=== PATIENT | female | born 1950 | race Caucasian/White ===

== ENCOUNTER 2022-04-06 06:38 | Day surgery (SDC) | payer MEDICARE, OTHER, SELFPAY ==
[2022-04-06] VITALS (8 sets, daily range): BP systolic 146–187; BP diastolic 63–90; PULSE 75–84; RESP 11–19; TEMP 36.7–37.2; O2SAT 93–98
--- NOTE | 2022-04-06 | PATH_ITS ---
[facility] Accession Number: [id number] . 01 Material submitted: . body - RIGHT PAROTID MASS . 01 Diagnosis: Right Parotid Gland, Resection: Warthin tumor. Negative for significant atypia and malignancy. [facility] 04/10/2022 1706 Local . 01 Comment: The neoplasm extends to the inked surgical margin, but does not appear transected. . 01 Electronically signed: . Kia Brito MD, Pathologist NPI- [id number] . 01 Gross description: . Received in formalin and labeled with the patient's name, designated parotid mass, is a 6-gram, 4.2 x 2.2 x 1.2 cm portion of salivary gland. The outer surface is inked. Sectioning reveals a uniform yellow-mcdaniel, slightly granular/nodular and focally chalky cut surface, extending to the inked margin. No residual, uninvolved salivary gland tissue is identified. Professor Of Biochemistry sections are submitted in A1-A2. (WILMA:[id number]) /MRV 04/07/2022 1522 Local . 01 Pathologist provided ICD-10: D11.9 . 01 CPT . 482186 Specimen Comment: A courtesy copy of this report has been sent to [phone] Performed at: 01 [facility] [address] [place] [address] Suite [facility], [place], [place] [id number] MD Matt Vargas MD Phone: [phone]
[2022-04-06] MEDS: LACTATED RINGERS 1,000 ML 42 ML IV ×3 (07:20→08:55)
--- NOTE | 2022-04-06 07:25 | PM.PREOP ---
Pre-operative Note Interval Note History & Physical reviewed/Exam performed by Physician: Yes Changes to H&P: No
--- NOTE | 2022-04-06 07:26 | PM.HP.1 ---
History of Present Illness History of Present Illness Date Patient Seen: 04/06/22 Time Patient Seen: 07:26 Chief complaint: Right parotid mass Narrative: 71-year-old female with a right parotid mass, benign on FNA, presents for excision. She was last seen in clinic 01/30/2022, no interval health changes. Received anesthesia clearance 02/09/2022. Patient History Medical History Arthritis Current smoker Diabetes Environmental allergies HTN (hypertension) Surgical History History of cataract extraction (2018) Hx of oral surgery (2014) Family & Social History Tobacco & Substance use: Smoking Status Former smoker alcohol intake current alcohol intake frequency other Substance Use Type marijuana Meds Home Medications and Allergies Home Medications Medication Instructions Recorded Confirmed Type amlodipine 5 mg tablet 5 mg PO DAILY 04/03/22 04/06/22 History losartan 50 mg tablet 50 mg PO DAILY 04/03/22 History pravastatin 40 mg tablet 40 mg PO DAILY 04/03/22 04/06/22 History Allergies Allergy/AdvReac Type Severity Reaction Status Date / Time Penicillins Allergy Rash Verified 04/06/22 07:16 Review of Systems Review of Systems Narrative: Negative except as listed in the HPI Exam Vital Signs (past 8 hours): - 04/06/22 07:04 Temperature 98.5 F Pulse Rate 75 Respiratory Rate 16 Blood Pressure 161/84 H Pulse Oximetry 98 Oxygen Delivery Method Room Air Narrative Exam Narrative: Well-developed well-nourished female with a 2-3 cm right parotid tail/level 2 mass. Heart regular rate and rhythm, lungs clear to auscultation bilaterally Assessment & Plan Assessment & Plan narrative: Assessment: Right parotid/level 2 neck mass Plan: Following discussion of the material risks benefits complications and alternatives, she elected to proceed with excision as an outpatient. Time Spent With Patient Critical Care time: I spent a total of [] minutes of critical care time on this patient's care today; this time is exclusive of procedural time.
--- NOTE | 2022-04-06 07:28 | PM.OP.1 ---
Operative Date/Time/Diagnoses Date of procedure: 04/06/22 Time of procedure: 09:01 Pre-op diagnosis: Right parotid tail/level 2 mass Post-op diagnosis: same Procedure & Clinicians Procedure: RIGHT partial parotidectomy WITHOUT nerve dissection. Facial nerve monitoring. Same procedure as scheduled: Yes Indications: 71-year-old female with a right parotid tail/level 2 neck mass, presents for excision. Following discussion of the material risks benefits complications and alternatives, she elected to proceed. Surgeon: Guille Meeks [employer] Operator: Zan Del Rio Anesthesia Type: General Operative Notes Findings: 3cm mass RIGHT parotid tail, facial nerve dissection not required due to mass location, a single vascular branch to the posterior facial vein required ligation, with a single cutaneous nerve visible during the dissection left intact, with a small branch of the greater auricular nerve requiring lysis. Closure Type: primary Specimen(s): other (Right parotid/level 2 neck mass) Estimated Blood Loss (mL): 5 Procedure in detail: Following identification and confirmation of consent as well as the site of the lesion marked in ink, the patient was brought to the operating suite and placed in the supine position. General LMA was performed with the table turned right side out and head turned to the left. Facial nerve EMG electrodes were placed by the set up mold technician and monitored throughout the case although no stimulation was utilized and there was no stimulation noted during any portion of the dissection. Dr. Del Rio surgical instrument repair specialist was required due to the possible complex nature of the mass in relation to the facial nerve. A modified Lg incision was marked in ink on the right side and widely infiltrated with 1% lidocaine 1 100,000 epinephrine. Following sterile prep and drape, I incised the skin utilizing only the inferior portion of the incision, beginning at the inferior lobule and curving into the neck in the submandibular area. I elevated the skin and subcutaneous flap over the mass and the mass was readily visible. Sharp and blunt dissection was utilized using bipolar cautery to dissect the mass circumferentially with a single vascular pedicle to a small branch of the posterior facial vein. No branches of the facial nerve were visible although a cervical sensory branch was identified and spared. Minimal hemostasis was required with bipolar cautery. The wound was irrigated with Betadine and the skin and subcutaneous tissue was closed with interrupted 4-0 chromic followed by running 5 0 nylon to the skin. Antibiotic ointment was applied. She was awakened in the operating room and taken to recovery room in stable condition without known complication. Sponge and needle counts were correct. Complications: none Post-operative Condition: stable Disposition: same day surgery Plan for aftercare: Antibiotic ointment or Vaseline to the incision at all times, ice as tolerated 24-48 hours, extended pressure as necessary for any bleeding. Follow-up in 1 week for suture removal. Tylenol and Advil for pain control, possible oxycodone.
--- NOTE | 2022-04-06 08:17 | SUR.OPER ---
Supine on padded OR bed, head on gel donut, left arm secured on padded arm boards at <90 degrees abduction, right arm tucked with gel, tape across arms to secure Right arm tucked, legs uncrossed, safety belt at thigh, tape over blanket over lower legs. Directed and approved by surgeon
[2022-04-06] MEDS: LIDOCAINE 1% W/EPI 20 ML INJ (08:33)
[2022-04-06] MEDS: ONDANSETRON 4 MG/2 ML INJ IV (09:23)
[2022-04-06] MEDS: OXYCODONE/ACETAMINOPHEN 5/325 TABLET 1 TAB PO (09:37)
--- NOTE | 2022-04-06 12:20 | SUR.PHASEII ---
1015 Dr Meeks notified of patient dressing with oozing. Pressure held with ice and pressure bag for 15 minutes. 1040 Pt dressing changed to right neck. No signs of bleeding, slight ooze at incision under ear. Pressure dressing with 4x4 folded and tegaderm placed. Pt will continue to hold pressure and ice during discharge home. Steady on feet. Pain 1/10.
== END 2022-04-06 10:50 | disposition home or self-care (01) ==
PROVIDERS: PCP Family Medicine; Referring Provider Otolaryngology; Visit Provider Otolaryngology
PROC: (CPT 42410; principal; 2022-04-06 07:45)
DX: D11.9 Benign neoplasm of major salivary gland, unspecified (principal); E11.9 Type 2 diabetes mellitus without complications; I10 Essential (primary) hypertension; Z87.891 Personal history of nicotine dependence
CPT/HCPCS: 42410; 82962; J2405; J3010